=== PATIENT | male | born 1990 | race Caucasian/White ===

== ENCOUNTER 2018-05-13 09:09 | Emergency (ER) | payer SELFPAY ==
[2018-05-13 09:10] VITALS: BP 135/91; PULSE 82; RESP 18; TEMP 36.6; O2SAT 98; BMI 43.2
--- NOTE | 2018-05-13 09:23 | RAD_ITS ---
STUDY: X-RAY - RIGHT FOOT CLINICAL: Male, 27 years old. Pain following injury. TECHNIQUE: 3 view(s) of the foot. COMPARISON: None. FINDINGS: There is a dorsal talar neck ?beak?. Small calcaneal spur at insertion of the Achilles tendon Normal visualized subtalar, talonavicular, calcaneocuboid, tarsal and tarsometatarsal articulations. Normal metatarsi. Normal metatarsophalangeal joint of the great toe. Normal tibial and fibular sesamoid bones. Normal interphalangeal joint of the great toe. Normal phalanges of the great toe. Normal second through fifth metatarsophalangeal joints. Normal interphalangeal joints and phalanges of the lesser toes. The soft tissue structures are unremarkable. RAD/Foot min 3 Views IMPRESSION: No acute abnormality is seen. Electronically Signed: Griffin Zafar MD at 9:57 EDT Tel [phone], Service support ,
[2018-05-13] MEDS: Naproxen 500 MG Tablet PO (09:25)
--- NOTE | 2018-05-13 09:28 | ED.DCSUM_ITS ---
- ER Visit Summary Date of Service: 05/13/18 Chief Complaint: Right foot pain History of Present Illness: The patient is a 27 M with no primary care physician. He reports he has right foot pain that began 2 days ago. It is a sharp pain Zeta 10 at worst and 410 currently. Is worsened by walking. It is relieved by rest. He is taken Tylenol without further relief. He denies any paresthesias. No recent trauma. No fall, MVA, or change in activity. Patient reports that 2 years ago he dropped a hands on his right foot and has had intermittent pain since that time. Physical Examination: Vitals: Stable. Afebrile. General: Well-nourished and well-developed. Head: Normocephalic atraumatic. Neck: Supple, no lymphadenopathy. No JVD. Nontender. Cardiovascular: Regular rate and rhythm. No murmurs. Respiratory: No respiratory distress. Clear to auscultation bilaterally. Abdominal: Soft, nontender, nondistended, normal bowel sounds. No guarding, rebound, or peritoneal signs. Back: Nontender. Extremities: No tenderness palpation over the medial or lateral malleoli. Is a 2+ dorsalis pedis pulse. He has mild tenderness palpation is diffuse over both the medial lateral sides of his hindfoot. There is no tenderness palpation over the mid or forefoot. He is neurovascular intact distal to this. No erythema, contusion, or soft tissue swelling.. Skin: Normal color, no rash. Neurologic: Alert and oriented ?3. Cranial nerves II through XII are intact. Normal strength and sensation. Psych: Normal affect. Test Results: Right foot x-ray is negative. Emergency Department Course and Treatment: Patient was treated with naproxen. He is resting comfortably. Treatment Plan: Patient refused crutches. He will be discharged on naproxen and instructed to follow-up Dr. Thomas in 1 week if not improving. Return to the emergency department for any worsening symptoms. Disposition: To home in improved and stable condition. Impression: 1. Right foot pain. This note was generated with Whitevector dictation software. It may contain incorrect words, spelling, and punctuation that were not noted in review of the chart prior to signing ED Disposition - Plan for ED Patient: Chief Complaint: Lower Extremity Injury Instructions: ED Sprain Foot Prescriptions: Naproxen [Naprosyn] 500 mg PO BID #14 tablet Referrals: Nate Thomas DPM [STAFF PHYSICIAN] - 1 Week if not improving
== END 2018-05-13 10:30 | disposition home or self-care (01) ==
PROVIDERS: Emergency Provider Emergency Medicine
DX: M79.671 Pain in right foot (principal); R05 Cough
CPT/HCPCS: 73630; 99283

== ENCOUNTER 2018-06-10 12:27 | Emergency (ER) | payer SELFPAY ==
[2018-06-10 12:28] VITALS: BP 127/77; PULSE 99; RESP 18; TEMP 36.7; O2SAT 99; BMI 43.4
--- NOTE | 2018-06-10 13:31 | ED.DCSUM_ITS ---
- ER Visit Summary Date of Service: 06/10/18 Chief Complaint: Redness and swelling to right great toe History of Present Illness: The patient is a 28 M who presents with redness and swelling to his right great toe for the past 2 weeks. Patient states he has a history of prior ingrown toenails. Patient states he was attempting to remove part of the nail himself. Patient has been using Epson salt soaks. Patient states there is some drainage coming from the nail margin. Patient denies any fevers or chills. Patient denies any paresthesias or weakness. Physical Examination: Vital signs are stable. Patient is afebrile. Patient is in no acute distress. Skin is warm and dry. There is some erythema and warmth over the lateral nail margin of the right great toe. There is no active drainage. There is no fluctuance noted. There is full range of motion of the IP and MP joint of the right great toe. Sensation was intact to light touch in all digits. Capillary refill is less than 2 seconds in all digits. The remaining physical exam is within normal limits. Emergency Department Course and Treatment: Patient was instructed to continue using Epsom salt soaks. Patient was given a prescription for Keflex. Patient was instructed to follow-up with his primary care physician in 7-10 days. Patient understood and was agreeable with the plan. All questions were answered. Disposition: Discharged home Impression: Paronychia right great toe This note was generated with [employer] dictation software. It may contain incorrect words, spelling, and punctuation that were not noted in review of the chart prior to signing ED Disposition - Plan for ED Patient: Disposition: Home or Assisted Living Chief Complaint: Lower Extremity Injury Diagnosis: Paronychia of great toe, right Instructions: ED Fingernail Infec Prescriptions: Cephalexin [Keflex] 500 mg PO Q6 #40 cap Referrals: Care Physician,No Primary [Primary Care Provider] -
== END 2018-06-10 14:25 | disposition home or self-care (01) ==
PROVIDERS: Emergency Provider Emergency Medicine
DX: L03.031 Cellulitis of right toe (principal)
CPT/HCPCS: 99282

== ENCOUNTER 2019-07-16 20:22 | Emergency (ER) | payer SELFPAY ==
[2019-07-16 20:22] VITALS: BP 145/82; PULSE 89; RESP 16; TEMP 36.8; O2SAT 97; BMI 42.8
--- NOTE | 2019-07-16 20:37 | ED.DCSUM_ITS ---
- ER Visit Summary Date of Service: 07/16/19 Chief Complaint: [Right foot pain] History of Present Illness: The patient is a 29 M [resents to the emergency department complaint of pain in his right foot that started 2 days ago. Patient denies any trauma. Patient is noticed some redness and swelling to the first MTP joint of the right foot. Patient has no history of gout. He denies any fevers or trauma.] Physical Examination: [Right foot-patient has tenderness over the first met atarsal with soft tissue swelling noted and erythema. Patient has pain with range of motion at this area. Neurovascular intact distally. No evidence of cellulitis.] Test Results: [None indicated] Emergency Department Course and Treatment: [He was started on prednisone 40 mg p.o.] Treatment Plan: [Will be treated with prednisone and [place] for pain. 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 It may contain incorrect words, spelling, and punctuation that were not noted in review of the chart prior to signing ED Disposition - Plan for ED Patient: Referrals: Care Physician,No Primary [Primary Care Provider] -
--- NOTE | 2019-07-16 20:38 | ED.DEP ---
ED Disposition - Plan for ED Patient: Instructions: Gouty Arthritis Prescriptions: Prednisone [Deltasone] 20 mg PO BID #10 tab Prescription Printed Hydrocodone Bitart/Apap 5-325 [[place] 5MG-325MG] 1 tab PO Q4H PRN PRN 2 Days #10 tab PRN Reason: Pain Prescription Printed Referrals: Care Physician,No Primary [Primary Care Provider] - Lynn Huynh DPM [STAFF PHYSICIAN] - 3-5 Days
[2019-07-16] MEDS: predniSONE 20 MG Tablet 40 MG PO (20:52)
== END 2019-07-16 21:20 | disposition home or self-care (01) ==
LOC: ED 20:55
PROVIDERS: Emergency Provider Emergency Medicine
DX: M10.9 Gout, unspecified (principal)
CPT/HCPCS: 99282

== ENCOUNTER 2019-10-23 16:49 | Emergency (ER) | payer SELFPAY ==
[2019-10-23 16:50] VITALS: BP 167/97; PULSE 103; RESP 18; TEMP 36.1; O2SAT 98; BMI 42.5
--- NOTE | 2019-10-23 17:27 | ED.DCSUM_ITS ---
- ER Visit Summary Date of Service: 10/23/19 Chief Complaint: Left forearm pain History of Present Illness: The patient is a 29 M who presents with left forearm pain that began today. Patient states she was sitting watching TV when the pain began. Patient denies any trauma or injury. Patient states the pain worse when he grasps something. Patient states the pain is localized to the ulnar aspect of the proximal forearm. Patient denies any paresthesias or weakness. Patient states the pain is sharp. Patient states nothing makes it better or worse. Patient states he has not tried anything at home. Physical Examination: Vital signs are stable. Patient is afebrile. Patient is in no acute distress. Musculoskeletal exam reveals tenderness over the ulnar aspect of the proximal left forearm. There is no edema or ecchymosis. There is no bony crepitance or step-off noted. There is full range of motion of the left elbow and left wrist. There are no foreign bodies noted. Sensation was intact to light touch in the radial, median, and ulnar areas. Strength is 5/5 in the radial, median, and ulnar areas. Radial pulses are equal bilaterally. Capillary refill was less than 2 seconds in all digits. Emergency Department Course and Treatment: Patient was advised that this is most likely muscular strain in his forearm. Patient was instructed to use ice to the area. Patient was given a prescription for Naprosyn. Patient was instructed to follow-up with his primary care physician in 5 to 7 days. Patient understood and was agreeable with the plan. All questions were answered. Disposition: Discharge home Impression: Left forearm strain This note was generated with [employer] dictation software. It may contain incorrect words, spelling, and punctuation that were not noted in review of the chart prior to signing ED Disposition - Plan for ED Patient: Disposition: Home or Assisted Living Diagnosis: Muscle strain of left forearm Instructions: MUSCLE STRAIN, Extremity Prescriptions: Naproxen [Naprosyn] 500 mg PO BID PRN #20 tab Prescription Printed Referrals: Care Physician,No Primary [Primary Care Provider] - Musa Solis III, MD [STAFF PHYSICIAN] - 5-7 Days
== END 2019-10-23 17:53 | disposition home or self-care (01) ==
PROVIDERS: Emergency Provider Emergency Medicine
DX: S56.912A Strain of unspecified muscles, fascia and tendons at forearm level, left arm, initial encounter (principal); X58.XXXA Exposure to other specified factors, initial encounter; Y93.9 Activity, unspecified; Y92.89 Other specified places as the place of occurrence of the external cause; Y99.9 Unspecified external cause status; F17.210 Nicotine dependence, cigarettes, uncomplicated
CPT/HCPCS: 99282

== ENCOUNTER 2019-11-20 18:57 | Emergency (ER) | payer SELFPAY ==
[2019-11-20 18:57] VITALS: BP 163/92; PULSE 104; RESP 18; TEMP 36.7; O2SAT 97; BMI 45.3
--- NOTE | 2019-11-20 19:09 | ED.DCSUM_ITS ---
- ER Visit Summary Date of Service: 11/20/19 Chief Complaint: [Left foot pain] History of Present Illness: The patient is a 29 M [presents to the emergency department with complaint of pain in his left foot that started 2 days ago. Patient denies any trauma. Patient states that several months ago he had pain exact same area. Patient denies any fevers. He has no medical history.] Physical Examination: [Foot-patient has tenderness over the first MTP joint with some pain erythema noted. Neurovascular intact distally. No evidence of trauma. No cellulitis. No lymphangitic streaking.] Test Results: [Indicated] Emergency Department Course and Treatment: [Patient was started on prednisone 40 mg p.o. Given crutches.] Treatment Plan: Patient will be started on prednisone and given a prescription for [place] for pain. Patient will be referred to primary care physician allergist/pediatric pulmonologist for no doc as well as podiatry] Disposition: [Discharged home in stable condition.] Impression: [Gouty arthropathy left foot] This note was generated with Qu[employer] dictation software. It may contain incorrect words, spelling, and punctuation that were not noted in review of the chart prior to signing ED Disposition - Plan for ED Patient: Referrals: Care Physician,No Primary [Primary Care Provider] -
--- NOTE | 2019-11-20 19:10 | DCINST.ED_ITS ---
ED Disposition - Plan for ED Patient: Instructions: Gout Diet, Treating Gout Attacks Prescriptions: Prednisone [Deltasone] 20 mg PO BID #10 tab Prescription Printed Hydrocodone Bitart/Apap 5-325 [[place] 5MG-325MG] 1 tab PO Q4H PRN PRN 2 Days #10 tab PRN Reason: Pain Prescription Printed Referrals: Care Physician,No Primary [Primary Care Provider] - Masoud Neumann MD [STAFF PHYSICIAN] - 5-7 Days Nate Thomas DPM [STAFF PHYSICIAN] - 5-7 Days
[2019-11-20] MEDS: predniSONE 20 MG Tablet 40 MG PO (19:24)
[2019-11-20 19:25] VITALS: RESP 16
== END 2019-11-20 19:32 | disposition home or self-care (01) ==
LOC: ED 19:27
PROVIDERS: Emergency Provider Emergency Medicine
DX: M10.9 Gout, unspecified (principal)
CPT/HCPCS: 99283

== ENCOUNTER 2020-07-28 14:58 | Emergency (ER) | payer SELFPAY ==
[2020-07-28 15:00] VITALS: BP 149/64; PULSE 95; RESP 18; TEMP 36.3; O2SAT 98; BMI 44.7
[2020-07-28 16:30] LABS: Absolute Lymphocyte Count 0.55 X10^3/uL (0.83-4.51); Basophil# 0.01 X10^3/uL; Basophil% 0.2 % (0-1); Eosinophil# 0.06 X10^3/uL; Eosinophils% 1.2 % (0-5); Hematocrit 48.1 % (40-54); Hemoglobin 16.7 g/dL (13.0-16.5); Lymphocyte # 0.55 X10^3/ul (4.0); Lymphocyte % 11.2 % (19-41); Mean Corp Hgb Conc 34.7 g/dL (32-36); Mean Corpuscular Hgb 32.7 pg (27.0-32.0); Mean Corpuscular Volume 94.1 fL (80-94); Mean Platelet Vol. 9.8 fl (6.2-12.0); Monocyte# 0.32 X10^3/uL; Monocyte% 6.5 % (0-10); NRBC Flagged by Analyzer 0 % (0-5); Neutrophil # 3.96 X10^3/uL (2.7-7.7); Neutrophil % 80.5 % (47-70); POSITIVE COUNT YES; POSITIVE DIFFERENTIAL YES; Platelet Count 121 K/mm3 (150-450); RBC Distribution Width CV 12.6 % (11.6-14.6); RBC Distribution Width SD 43.2 fl (35.1-43.9); Red Blood Count 5.11 M/mm3 (4.6-6.2); White Blood Count 4.9 K/mm3 (4.4-11.0)
--- NOTE | 2020-07-28 16:57 | ED.VISSUMM ---
- ER Visit Summary Date of Service: 07/28/20 Chief Complaint: Abdominal pain History of Present Illness: The patient is a 30 M who presents with abdominal pain that began yesterday. Patient states it is gradually gotten worse. Patient states pain is over the epigastric area. Patient describes his pain is dull. Patient states it is worse with deep breathing. Patient denies any relation with food. Patient denies any nausea or vomiting. Patient denies any diarrhea, melena, or hematochezia. Patient denies any dysuria or hematuria. Patient denies any fevers but admits to subjective chills. Patient states he checked his temperature at home and it was normal even when he was feeling chilled. Physical Examination: Vital signs are stable. Patient is afebrile. Patient is in no acute distress. Oral mucosa is pink and moist. Neck is supple. Trachea is midline. There is no JVD noted. Heart was regular rate and rhythm. Lungs are clear and equal bilaterally. Abdomen is soft. Bowel sounds are normal. There is epigastric tenderness. There is no rebound or guarding noted. Cranial nerves II through XII are intact. There are no focal motor or sensory deficits noted. Extremities are intact. There is no calf tenderness or edema. Test Results: CBC was within normal limits. Comprehensive metabolic profile and lipase were obtained and were all within normal limits. Emergency Department Course and Treatment: Patient was given a GI cocktail here. Patient was advised of his findings. Patient was advised that this could be gastritis, GERD, or musculoskeletal pain. Patient was instructed to follow-up with his primary care physician in 5 to 7 days. Patient understood and was agreeable with the plan. All questions were answered. Disposition: Discharge home Impression: Epigastric abdominal pain This note was generated with N[employer] dictation software. It may contain incorrect words, spelling, and punctuation that were not noted in review of the chart prior to signing ED Disposition - Plan for ED Patient: Disposition: Home or Assisted Living Diagnosis: Epigastric abdominal pain of unknown etiology Instructions: ED Unknown Causes of Abdominal Pain Male Prescriptions: Omeprazole [Prilosec] 20 mg PO DAILY #30 cap Transmission Status: Pending to [id number] Referrals: Tolu Lawson MD [STAFF PHYSICIAN] - 5-7 Days
[2020-07-28 17:05] LABS: ALB/GLOB Ratio 0.6 RATIO (0.9-2.4); AST(SGOT) 42 U/L (15-37); Alanine Aminotransfer ALT/SGPT 48 U/L (16-61); Albumin, Serum 3.2 g/dL (3.2-5.0); Alkaline Phosphatase 70 U/L (45-117); Anion Gap 3 (5-15); BUN 12 mg/dL (7-18); BUN/Creat Ratio 12.6 RATIO (10-20); Calcium,Total 8.7 mg/dL (8.5-10.1); Chloride 105 mmol/L (98-107); Creatinine, Serum 0.96 mg/dL (0.70-1.30); EST Glomerular Filtration Rate 98 mL/min (>60); Est Glom Filt Rate - Afr Amer 118 mL/min (>60); Estimated Creatinine Clearance 111.49 ml/min; Globulin 5.2 g/dL (2.2-4.2); Glucose 93 mg/dL (74-106); Lipase 185 U/L (73-393); Potassium 4.3 mmol/L (3.5-5.1); Protein, Total 8.4 g/dL (6.4-8.2); Sodium Level 138 mmol/L (136-145)
[2020-07-28] MEDS: Mag Hydrox/Al Hydrox/Simeth 30 ML UDC PO (17:26)
== END 2020-07-28 17:29 | disposition home or self-care (01) ==
PROVIDERS: Emergency Provider Emergency Medicine
DX: R10.13 Epigastric pain (principal)
CPT/HCPCS: 80053; 83690; 85025; 99284; A4216

== ENCOUNTER 2020-09-27 15:44 | Emergency (ER) | payer SELFPAY ==
[2020-09-27 15:45] VITALS: BP 152/84; PULSE 99; RESP 18; TEMP 37; O2SAT 99; BMI 45.1
--- NOTE | 2020-09-27 15:53 | ED.VIS.GEN ---
History of Present Illness Chief Complaint: Complaint Informant: Patient Narrative: Patient presents the emergency department with the chief complaint of dysuria of about 1 day duration. Symptoms began yesterday immediately after intercourse with his monogamous significant other. He states that there were no lobes or lotions. He states that there was some urine and wonders if he got urine into his penis.Patient denies any fevers. He denies drainage from the penis. He denies any swelling or rashes. He states that he is not a diabetic. He states that when he urinates he gets a burning sensation along the penile shaft. - Past Medical History (1) Eczema Status: Chronic Past Medical History - Allergies and Home Meds Allergies/Adverse Reactions: Allergies [place] Allergy (Uncoded 09/27/20 15:44) Rash Primary Care Physician: Care Physician,No Primary [Primary Care Provider] - Prior records reviewed: Yes Surgical History: noncontributory Smoking Status: Former smoker Review of Systems General: Denies: Chills, Fever, Sweats Eyes: Denies: Visual changes - bilaterally, Diplopia ENT: Denies: Rhinorrhea, Sore throat Cardiovascular: Denies: Chest pain, Palpitations Respiratory: Denies: Dyspnea, Cough, Dyspnea on exertion Gastrointestinal: Denies: Abdominal pain, Nausea, Vomiting, Diarrhea, Melena, Hematochezia Genitourinary: Reports: Dysuria. Denies: Hematuria, Frequency Musculoskeletal: Denies: Back pain, Extremity Pain Skin: Denies: Rash, Wounds Neurological: Denies: Headache, Weakness, Numbness Physical Exam Vital Signs/Narrative: Vital Signs Temp Pulse Resp BP Pulse Ox 09/27/20 15:45 98.6 F 99 18 152/84 H 99 Inital Vital Signs reviewed: Yes General: Well nourished, Well developed, Obese, No Acute Distress Head: Normocephalic, Atraumatic Eyes: Perrl, EOMI ENT: Moist mucous membranes, No rhinorrhea Neck: Supple, Nontender Cardiovascular: Regular rate, Regular rhythm, No murmurs Respiratory: No distress, CTA bilaterally, Chest nontender Abdomen: Soft, Nontender, Nondistended, Normal bowel sounds Back: Nontender, Normal Inspection Extremities: Nontender, No edema Skin: Normal color, No rash Neurological: Alert, Oriented x3, Cranial nerves II-XII grossly intact, Normal Strength, Normal Sensation Psychological: Normal affect, Normal Mood Diagnostic/Tx/Re-eval Laboratory Last Values Urine Color Yellow (Yellow) 09/27/20 15:58 Urine Clarity Sl. Cloudy (Clear) 09/27/20 15:58 Urine pH 6.0 (5.0 - 8.0) 09/27/20 15:58 Ur Specific [place] 1.030 (1.002-1.030) 09/27/20 15:58 Urine Protein 30 mg/dl (Negative) H 09/27/20 15:58 Urine Glucose (UA) Normal mg/dl (Normal) 09/27/20 15:58 Urine Ketones Negative mg/dl (Negative) 09/27/20 15:58 Urine Occult Blood Negative /ul (Negative) 09/27/20 15:58 Urine Nitrite Negative (Negative) 09/27/20 15:58 Urine Bilirubin Negative mg/dL (Negative) 09/27/20 15:58 Urine Urobilinogen 1 mg/dl (Normal) H 09/27/20 15:58 Ur Leukocyte Esterase 100 /ul (Negative) H 09/27/20 15:58 Urine RBC 0 SEEN /hpf (0-5) 09/27/20 15:58 Urine WBC 10-25 SEEN /hpf (0-5) 09/27/20 15:58 Ur Squamous Epith Cells 0-5 SEEN /hpf (0-5) 09/27/20 15:58 Urine Bacteria 0 SEEN /hpf (None Seen) 09/27/20 15:58 Urine Mucus 0 SEEN /hpf (<or=2+) 09/27/20 15:58 - Medical Decision Making Urinalysis demonstrates 10-25 white blood cells and 0 bacteria negative nitrates. I think from his description of the events is most likely a chemical urethritis. Go ahead and place him on Keflex given the 10-25 white cells. We will also write for some Pyridium. Avoidance of sexual contact until symptoms have resolved. If they are not resolving he should follow-up with urology. ED Disposition - Plan for ED Patient: Disposition: Home or Assisted Living Diagnosis: Urethritis Instructions: ED CHEMICAL URETHRITIS Child Prescriptions: Cephalexin [Keflex] 500 mg PO Q12 #10 cap Prescription Printed Phenazopyridine HCl [Pyridium] 200 mg PO TID #9 tab Prescription Printed Referrals: Wil Foy MD [STAFF PHYSICIAN] - 1 Week if not improving
[2020-09-27 16:08] LABS: Bacteria 0 SEEN /hpf (None Seen); Mucous, Urine 0 SEEN /hpf (<or=2+); Red Blood Cells-Urine 0 SEEN /hpf (0-5)
[2020-09-27 16:19] LABS: Color, Urine Yellow (Yellow); Glucose, Dipstick Normal (Normal); Ketone-Dipstick Negative (Negative); Leukocyte Esterase-Dipstick 100 /ul (Negative); Nitrite-Dipstick Negative (Negative); Occult Blood-Urine Negative /ul (Negative); Protein-Dipstick 30 mg/dl (Negative); Urine Bilirubin Dipstick Negative (Negative); Urine Clarity Sl. Cloudy (Clear); Urine Urobilinogen 1 mg/dl (Normal)
[2020-09-27 16:27] LABS: Squamous Epithelial Cells - UA 0-5 SEEN /hpf (0-5); White Blood Cells 10-25 SEEN /hpf (0-5)
== END 2020-09-27 17:18 | disposition home or self-care (01) ==
PROVIDERS: Emergency Provider Emergency Medicine
DX: N34.2 Other urethritis (principal); Z87.891 Personal history of nicotine dependence; J30.1 Allergic rhinitis due to pollen
CPT/HCPCS: 81001; 99282

== ENCOUNTER 2021-04-17 11:14 | Emergency (ER) | payer SELFPAY ==
[2021-04-17 11:14] VITALS: BP 155/83; PULSE 82; RESP 16; TEMP 36.8; O2SAT 96; BMI 44.1
--- NOTE | 2021-04-17 11:25 | ED.VIS.LOWEX ---
HPI History of Present Illness Chief Complaint: Lower Extremity Injury Informant: patient Narrative Narrative: Patient has right foot and ankle pain. He states for the past couple of days he has been having pain. He states he had an injury in 2011 and ever since then he has intermittent pain. He denies any new injuries to the foot or ankle. It hurts worse with walking. He denies any numbness or tingling. He tried Tylenol without any relief. PFSH PFSH Home Medications cephalexin 500 mg PO Q12 #10 cap 09/27/20 [Rx Last Taken Unknown] phenazopyridine 200 mg PO TID #9 tab 09/27/20 [Rx Last Taken Unknown] naproxen 500 mg PO BID PRN #20 tab 04/17/21 [Rx Last Taken Unknown] Allergy/AdvReac Type Severity Reaction Status Date / Time [place] Allergy Rash Uncoded 04/17/21 11:16 Social History Smoking Status: Former smoker ROS ROS ED Constitutional Constitutional ED: Denies chills or fever(s) Eyes Eyes: Denies blurry vision, change in vision or diplopia ENT ENT ED: Denies ear pain, rhinorrhea or sore throat Cardiovascular Cardiovascular: Denies chest pain or palpitations Respiratory/Chest Respiratory/Chest: Denies cough, dyspnea or sputum Gastrointestinal Gastrointestinal: Denies abdominal pain, diarrhea, nausea or vomiting Genitourinary Genitourinary ED: Denies dysuria, hematuria or urinary frequency Musculoskeletal Musculoskeletal: Reports other Details: Right foot and ankle pain Integumentary Denies change in pigmentation or rash Neurologic Neurologic: Denies headache(s), numbness or weakness Psychiatric Psychiatric: Denies anxiety or depression Endocrine Endocrinology: Denies polydipsia or polyuria EXAM Physical Exam Const Vital Signs: 04/17/21 11:14 Temperature 98.2 F Temperature Source Temporal Pulse Rate 82 Respiratory Rate 16 Blood Pressure 155/83 H Blood Pressure Mean 107 Pulse Ox 96 Oxygen Delivery Method Room Air Positive well nourished and well developed General Appearance ED: well developed HEENT normocephalic and atraumatic Eyes PERRL Extremity Extremity Narrative: T. There is no tenderness to palpation. Capillary refills less than 2 seconds.Right foot and ankle have normal appearance. There is no swelling. He has a 2+ pulse Neuro oriented x3 and CN's II-XII intact bilaterally Sensorium / Orientation: alert Psych mental status grossly normal Skin Rashes: no rashes MDM MDM MDM Narrative Medical decision making narrative: The patient is not complaining of any pain while sitting in the bed. He has no tenderness to palpation. At this point I do not feel he needs any repeat x-rays. I will give him naproxen for pain control. He will be given orthopedic follow-up. Discharge Plan Triage Chief Complaint: Lower Extremity Injury ED Provider: Shant Mason Dx/Rx/DC Orders Clinical Impression: Acute pain of right foot Instructions: ED Pain, Acute, Uncertain Cause Prescriptions: New naproxen 500 MG tablet 500 mg PO BID PRN Qty: 20 RF: 0 No Action phenazopyridine 200 MG tablet 200 mg PO TID Qty: 9 RF: 0 cephalexin 500 MG capsule 500 mg PO Q12 Qty: 10 RF: 0 Primary Care Provider: Care Physician,No Primary Referrals: Catrachito Jimenez MD [STAFF PHYSICIAN] - Care Physician,No Primary [Primary Care Provider] - Disposition Disposition: Home, self care
== END 2021-04-17 11:49 | disposition home or self-care (01) ==
LOC: ED 11:34
PROVIDERS: Emergency Provider Emergency Medicine
DX: M79.671 Pain in right foot (principal); Z87.891 Personal history of nicotine dependence
CPT/HCPCS: 99282

== ENCOUNTER 2022-01-16 06:22 | Emergency (ER) | payer SELFPAY ==
[2022-01-16 06:23] VITALS: BP 159/88; PULSE 106; RESP 17; TEMP 36.2; O2SAT 98; BMI 45.6
--- NOTE | 2022-01-16 06:38 | RAD_ITS ---
STUDY: X-RAY - LEFT ANKLE REASON FOR EXAM: Male, 31 years old. pain TECHNIQUE: 3 view(s) of the ankle. COMPARISON: None. FINDINGS: No acute fracture or dislocation. There is calcaneal spurring present. The soft tissue structures are unremarkable. RAD/Ankle min 3 Views IMPRESSION: Negative x-ray examination of the ankle. Electronically Signed: Alberto Bradford MD at 7:08 EST ,
[2022-01-16] MEDS: HYDROcodone Bitartrate/Apap 5/325 Tablet PO (06:43)
--- NOTE | 2022-01-16 07:05 | EX.ED.DYSGE1 ---
HPI History of Present Illness Chief Complaint: Lower Extremity Injury Narrative Narrative: Patient is a 31-year-old male with past medical history of ankle problems. He states he was helping to push his brother out of snow 3 to 5 days ago. He states that he did not have any pain while pushing but the next day woke up and noticed some pain and swelling in his left lateral ankle. He states there has been no further trauma or excessive activity but he has noticed that the pain has been persistent and not improving with rest and [id number] medications and therefore comes to the hospital for evaluation. PFSH PFSH Home Medications hydrocodone-acetaminophen 1 tab PO Q6H PRN 3 Days #12 tab 01/16/22 [Rx Last Taken Unknown] Allergy/AdvReac Type Severity Reaction Status Date / Time [place] Allergy Rash Uncoded 04/17/21 11:16 Social History Smoking Status: Former smoker ROS ROS ED Constitutional Constitutional ED: Denies chills or fever(s) ENT ENT ED: Denies sore throat Cardiovascular Cardiovascular: Denies chest pain Respiratory/Chest Respiratory/Chest: Denies cough or dyspnea Gastrointestinal Gastrointestinal: Denies abdominal pain, diarrhea, nausea or vomiting Genitourinary Genitourinary ED: Denies dysuria Musculoskeletal Musculoskeletal: Reports arthralgias and other Details: Positive left ankle pain ; Denies myalgias Integumentary Denies rash Neurologic Neurologic: Denies headache(s) Hematologic/Lymphatic Hematologic/Lymphatic: Denies easy bleeding or easy bruising EXAM Physical Exam Const Vital Signs: 01/16/22 06:23 Temperature 97.2 F L Temperature Source Temporal Pulse Rate 106 H Respiratory Rate 17 Blood Pressure 159/88 H Blood Pressure Mean 111 Pulse Ox 98 Oxygen Delivery Method Room Air Positive well nourished, well developed and obese General Appearance ED: well developed Nutritional Appearance: obese Eyes PERRL and EOMs intact bilaterally Neck supple Resp normal respiratory effort and clear to auscultation bilaterally Cardio regular rate and regular rhythm Extremity Extremity Narrative: Left lower extremity is neurovascularly intact. Patient does have soft tissue swelling along the left lateral malleolus. Active range of motion is decreased secondary to pain. However Achilles tendon and ankle ligaments are stable. There is pain on palpation over top the joint space just below the lateral malleolus. There is no asymmetric erythema warmth or lymphangitic streaking associated with the asymmetric edema. Negative Homans' sign bilaterally Neuro oriented x3 and CN's II-XII intact bilaterally Sensorium / Orientation: alert Psych mental status grossly normal Skin no rashes or lesions noted Skin Narrative: Soft tissue swelling to the left lateral malleolus/ankle as documented above MDM MDM MDM Narrative Medical decision making narrative: Patient presented to the ER with report of left ankle pain and no apparent trauma. He did state that he was doing excessive activity the day prior to the pain beginning. On exam he does have asymmetric soft tissue swelling around the joint space but Achilles tendon ankle ligaments are stable. He also does not have overlying erythema warmth or lymphangitic streaking to suggest cellulitic infection or gout. As the soft tissue swelling is localized to the ankle and he has a negative Homans' sign I have low concern for DVT. An x-ray was obtained which reveals no acute fracture dislocation or foreign body. Therefore this time I feel patient has an ankle sprain of his fibulotalar ligament and he can be treated symptomatically with walking boot and pain medication and discharged Radiography Diagnostic Testing: X-ray of the left ankle reveals no acute fracture or dislocation Discharge Plan Triage Chief Complaint: Lower Extremity Injury ED Provider: Roland Bruce Dx/Rx/DC Orders Clinical Impression: Left ankle sprain Instructions: ED Ankle Sprain (Adult) Prescriptions: New hydrocodone-acetaminophen 5-325 mg tablet 1 tab PO Q6H PRN (Reason: pain) 3 Days Qty: 12 RF: 0 Primary Care Provider: Care Physician,No Primary Referrals: Tolu Lawson MD [STAFF PHYSICIAN] - 1 Week if not improving Care Physician,No Primary [Primary Care Provider] - Disposition Disposition: Home, Self Care
== END 2022-01-16 07:27 | disposition home or self-care (01) ==
PROVIDERS: Emergency Provider Emergency Medicine; Visit Provider Emergency Medicine
DX: S93.402A Sprain of unspecified ligament of left ankle, initial encounter (principal); Z87.891 Personal history of nicotine dependence
CPT/HCPCS: 73610; 99282

== ENCOUNTER 2024-03-22 21:23 | Emergency (ER) | payer SELFPAY ==
[2024-03-22 21:25] VITALS: BP 157/81; PULSE 122; RESP 16; TEMP 35.8; O2SAT 95
--- NOTE | 2024-03-22 21:34 | ED.VIS.LOWEX ---
HPI History of Present Illness Chief Complaint: Lower Extremity Injury Detail of Chief Complaint: Patient complains of pain above the right patella since bowling last evenin Informant: patient and parent Occured/Mechanism Comment: Documented HPI narrative Onset/Context/Timing Context: Sudden Onset Timing: Continuous Quality of Pain: Dull and Throbbing Location: Superior of the right patella Current Severity: Mild Maximum Severity: Moderate Worsened by: Movement, palpation and walking Relieved by: Nothing Associated Symptoms Associated Symptoms: Negative for Parasthesia, Weakness or Loss of Funtion Narrative Narrative: Patient is a 33-year-old male. He presents with pain above the right patella. There is no history of trauma. This occurred after bowling. He denies paresthesia, anesthesia motors. He denies history of diabetes, renal disease, hypertension or peptic ulcer disease. He has taken Tylenol with no benefit. He has not applied ice or heat to the area. He denies prior symptoms. Prior similar symptoms: No Recent Illness/Hospitalization: No PFSH PFSH Home Medications NK 03/22/24 [History Last Taken Unknown] Allergy/AdvReac Type Severity Reaction Status Date / Time Environmental Allergies: Allergy Rash Verified 03/22/24 21:27 Uncoded [pine] Social History (Updated 03/22/24 @ 21:[address] Angelo Wharton MD) household members: family Smoking Status: Former smoker ROS ROS ED Constitutional Constitutional ED: Denies chills, fever(s) or subjective Gastrointestinal Gastrointestinal: Denies nausea or vomiting Musculoskeletal Musculoskeletal: Reports other Details: Per HPI narrative. There is no history of gout or pseudogout ; Denies arthralgias or myalgias Integumentary Denies abscess, Abrasions or rash Neurologic Neurologic: Denies paresthesias or weakness Hematologic/Lymphatic Hematologic/Lymphatic: Denies easy bleeding or easy bruising EXAM Physical Exam Const Vital Signs: 03/22/24 21:25 Temperature 96.5 F L Temperature Source Temporal Pulse Rate 122 H Respiratory Rate 16 Blood Pressure 157/81 H Blood Pressure Mean 106 Pulse Ox 95 Oxygen Delivery Method Room Air Positive well nourished, well developed and obese Constitutional Narrative: Patient observed walking from triage to the examination room. He has a slight limp. General Appearance ED: well developed and NAD Nutritional Appearance: obese HEENT Reports moist mucous membranes normocephalic and atraumatic Eyes PERRL Eyes Narrative: Extract muscle intact. Resp normal respiratory effort Cardio regular rate and regular rhythm Extremity normal to inspection and full ROM Extremity Narrative: Patient able to extend 180 degrees flex to 90 degrees. There is pain outpatient over the quadricep tendon. There is no effusion. Patellas not blottable. There is no laxity varus valgus stress testing. Modified Yuliya's test was negative. Frank's test was negative. There is no pain to palpation popliteal fossa nor is or any fullness or palpable mass. DP PT pulse are palpable and 2+. There is no evidence of injury to the leg, ankle or foot. General Extremety ED: Negative for cyanosis or edema General Extremity: Negative for cyanosis or edema Neuro oriented x3, CN's II-XII intact bilaterally and moves all extremities Sensorium / Orientation: alert Psych mental status grossly normal Skin no wounds Lesions: no lesions Rashes: no rashes MDM MDM MDM Narrative Medical decision making narrative: Patient's history and physical is consistent with quadricep tendinitis. With no effusion there is no concern for crystal induced or pyogenic arthritis. Since patient has good strength there is no concern for quadricep tear. Treatment is NSAIDs and ice. Patient has no contraindication to NSAIDs. Imaging is not required since there is no history of direct trauma. Discharge Plan Triage Chief Complaint: Lower Extremity Injury ED Provider: Angelo Wharton Dx/Rx/DC Orders Clinical Impression: Tendinitis of right quadriceps tendon, Eczema Instructions: ED Tendonitis Prescriptions: No Action NK Stand Alone Forms: ED Work / School Excuse Primary Care Provider: Care Physician,No Primary Referrals: Elda Lo [Non-Staff] - 1 Week if not improving Care Physician,No Primary [Primary Care Provider] - Activity Restrictions/Additional Instructions: 1. Apply ice to area above right knee 6-10 times a day 2. Take 4 ibuprofen tablets every 8 hours or 2 Aleve tablets every 12 hours for the next 5 to 7 days Disposition Disposition: Home, Self Care
[2024-03-22] MEDS: Naproxen 250 MG Tablet 500 MG PO (21:39)
== END 2024-03-22 21:48 | disposition home or self-care (01) ==
PROVIDERS: Emergency Provider Emergency Medicine; Visit Provider Emergency Medicine
DX: M76.51 Patellar tendinitis, right knee (principal); L30.9 Dermatitis, unspecified; Z87.891 Personal history of nicotine dependence
CPT/HCPCS: 99282

== ENCOUNTER 2024-04-21 22:35 | Emergency (ER) | payer SELFPAY ==
[2024-04-21 22:35] VITALS: BP 156/83; PULSE 105; RESP 16; TEMP 36.6; O2SAT 96; BMI 46.7
--- NOTE | 2024-04-22 02:13 | ED.RN ---
pt walking around in his room, pt stated he needs to go to work at 8am and is leaving before being seen. walked out.
== END 2024-04-22 02:15 | disposition left against medical advice (07) ==
DX: M54.9 Dorsalgia, unspecified (principal)
CPT/HCPCS: 99281

== ENCOUNTER 2024-07-29 08:16 | Emergency (ER) | payer SELFPAY ==
[2024-07-29 08:17] VITALS: BP 129/85; PULSE 89; RESP 18; TEMP 36; O2SAT 98; BMI 47.2
--- NOTE | 2024-07-29 08:35 | ED.VIS.LOWEX ---
HPI History of Present Illness HPI Narrative: Patient presents with pain to his right foot that began 2 days ago. Patient states he woke up and noticed pain in the lateral aspect of his right foot. Patient denies any trauma or injury. Patient states pain is worse with any weightbearing. Patient describes the pain as stabbing. Patient states the pain is constant. Patient states nothing makes the pain any better. Patient admits to some tingling over the lateral aspect of his right foot. Patient denies any weakness. Patient denies any neck or back pain. Chief Complaint: Lower Extremity Injury Informant: patient Onset/Context/Timing Onset: Days (3) Context: Sudden Onset Timing: Continuous Quality of Pain: Stabbing Location: Right foot Worsened by: Weightbearing Relieved by: Nothing Associated Symptoms Associated Symptoms: Positive for Parasthesia (Lateral aspect right foot); Negative for Weakness or Loss of Funtion PFSH [facility] Medical History GERD (gastroesophageal reflux disease) Former smoker Migraines Home Medications ?Medication ?Instructions ?Recorded ?Last Taken ?Type naproxen 500 mg tablet 500 mg PO BID PRN #20 tabs 07/29/24 Unknown Rx Allergy/AdvReac Type Severity Reaction Status Date / Time Environmental Allergies: Allergy Rash Verified 04/21/24 22:37 Uncoded (pine) Surgical History no surgical history no surgical history Social History household members: family Smoking Status: Former smoker ROS ROS ED Constitutional Constitutional ED: Denies chills or fever(s) Eyes Eyes: Denies blurry vision or change in vision ENT ENT ED: Denies rhinorrhea or sore throat Cardiovascular Cardiovascular: Denies chest pain or palpitations Respiratory/Chest Respiratory/Chest: Denies cough or dyspnea Gastrointestinal Gastrointestinal: Denies nausea or vomiting Genitourinary Genitourinary ED: Denies dysuria or hematuria Musculoskeletal Musculoskeletal: Denies back pain or neck pain Integumentary Denies abscess or rash Neurologic Neurologic: Denies headache(s) or weakness Allergic/Immunologic Allergic/Immunologic ED: Denies mouth swelling or urticaria EXAM Physical Exam Const Vital Signs: 07/29/24 08:17 Temperature 96.8 F L Temperature Source Temporal Pulse Rate 89 Respiratory Rate 18 Blood Pressure 129/85 H Blood Pressure Mean 99 Pulse Ox 98 Oxygen Delivery Method Room Air Positive well nourished and well developed General Appearance ED: well developed and NAD HEENT Reports moist mucous membranes Neck full ROM Extremity Extremity Narrative: There is tenderness and edema over the lateral aspect of the right foot. There is no obvious deformity noted. There is no ecchymosis noted. Range of motion was slightly limited in all motions of the right foot and toes secondary to pain. Strength is 5/5 bilaterally in the lower extremities. There are no sensory deficits noted. Pedal pulses are equal bilaterally. Neuro oriented x3, CN's II-XII intact bilaterally, moves all extremities and no sensory deficits noted Sensorium / Orientation: alert Motor Exam: strength 5/5 throughout Psych mental status grossly normal MDM MDM MDM Narrative Medical decision making narrative: Differential diagnosis includes sprain, fracture, tendinitis, and contusion. X-rays of the right foot will be obtained to assess for fracture. Radiography Diagnostic Testing: Clinical Impression(s) from Imaging Studies Foot X-Ray 07/29/24 08:46 IMPRESSION: Normal x-ray examination of the foot. Electronically Signed: Griffin Zafar MD at 9:13 EDT , X-rays of the right foot were obtained. There are 3 views. On my independent interpretation, there is an old avulsion fracture off the cuboid bone. There is no acute fracture noted. Radiologist also interpreted the x-rays and agrees. Treatment and Re-Evaluation Narrative: Patient is given a dose of Naprosyn here. Patient was given a walking boot. Patient was instructed to ice and elevate the right foot. Patient was given a prescription for Naprosyn. Patient was given a walking boot. Patient was instructed to follow-up with podiatry and his primary care physician in 5 to 7 days. Patient was also given referral for podiatry. Patient understood and was agreeable with the plan. All questions were answered. Discharge Plan Triage Chief Complaint: Lower Extremity Injury ED Provider: Lc Carey Dx/Rx/DC Orders Clinical Impression: Acute pain of right foot, BMI 45.0-49.9, adult Instructions: ED Foot Sprain, ED RICE Prescriptions: New naproxen 500 mg tablet 500 mg PO BID PRN Qty: 20 0RF Primary Care Provider: Care Physician,No Primary Referrals: Lc Purcell MD [Med Staff - Business Process Specialist] - 5-7 Days Michael Hobbs DPM [Med Staff - Active Staff] - 5-7 Days Care Physician,No Primary [Primary Care Provider] - Print Language: Greenlandic Disposition Disposition: Home, Self Care
--- NOTE | 2024-07-29 08:46 | RAD_ITS ---
STUDY: X-RAY - RIGHT FOOT CLINICAL: Male, 34 years old. Injury/Pain. Numbness. TECHNIQUE: 3 view(s) of the foot. COMPARISON: Comparison is made with prior study dated 01/13/2018. FINDINGS: There is an enthesophyte involving the posterior superior calcaneus at the site of insertion of the Achilles tendon. Normal visualized subtalar, talonavicular, calcaneocuboid, tarsal and tarsometatarsal articulations. Normal metatarsi. Normal metatarsophalangeal joint of the great toe. Normal tibial and fibular sesamoid bones. Normal interphalangeal joint of the great toe. Normal phalanges of the great toe. Normal second through fifth metatarsophalangeal joints. Normal interphalangeal joints and phalanges of the lesser toes. The soft tissue structures are unremarkable. RAD/Foot min 3 Views IMPRESSION: Normal x-ray examination of the foot. Electronically Signed: Griffin Zafar MD at 9:13 EDT ,
[2024-07-29] MEDS: Naproxen 500 MG Tablet PO (08:49)
[2024-07-29 09:31] VITALS: BP 133/90; PULSE 101; RESP 16; TEMP 36.2; O2SAT 95
== END 2024-07-29 09:33 | disposition home or self-care (01) ==
PROVIDERS: Emergency Provider Emergency Medicine; Visit Provider Emergency Medicine
DX: M79.671 Pain in right foot (principal); Z87.891 Personal history of nicotine dependence; K21.9 Gastro-esophageal reflux disease without esophagitis
CPT/HCPCS: 73630; 99283

== ENCOUNTER 2024-12-05 11:20 | Emergency (ER) | payer MEDICAID, SELFPAY ==
[2024-12-05 11:21] VITALS: BP 152/92; PULSE 88; RESP 16; TEMP 36.4; O2SAT 99; BMI 46.2
--- NOTE | 2024-12-05 11:30 | EDS_ITS ---
HPI History of Present Illness Chief Complaint: Ear Problem Informant: patient Onset/Context/Timing Onset: Month(s) (1) Context: Gradual Onset Timing: Continuous Quality: Clogged Location: Bilateral ears, right worse than left Worsened by: Nothing Relieved by: Nothing Narrative Narrative: Patient presents with bilateral ear pain that has been getting worse over the past month. Patient states his ears feel clogged. Patient states his right ear is worse than the left. Patient admits to some decreased hearing. Patient denies any fevers or chills. Patient denies any discharge or drainage. Patient denies any headaches. Patient states he went to urgent care last month and was given decongestants. Patient states these have not helped. Patient denies any sore throat or cough. Patient denies any sinus pressure. [facility] Medical History GERD (gastroesophageal reflux disease) Former smoker Migraines Home Medications ?Medication ?Instructions ?Recorded ?Last Taken ?Type NK 12/05/24 Unknown History Allergy/AdvReac Type Severity Reaction Status Date / Time Environmental Allergies: Allergy Rash Verified 12/05/24 11:23 Uncoded (pine) Social History household members: family Smoking Status: Former smoker ROS ROS ED Constitutional Constitutional ED: Denies chills or fever(s) Eyes Eyes: Denies blurry vision or change in vision ENT ENT ED: Reports ear pain bilateral; Denies rhinorrhea or sore throat Cardiovascular Cardiovascular: Denies chest pain or palpitations Respiratory/Chest Respiratory/Chest: Denies cough or dyspnea Gastrointestinal Gastrointestinal: Denies nausea or vomiting Genitourinary Genitourinary ED: Denies dysuria or hematuria Musculoskeletal Musculoskeletal: Denies back pain or neck pain Integumentary Denies abscess or rash Neurologic Neurologic: Denies headache(s) or weakness Allergic/Immunologic Allergic/Immunologic ED: Denies mouth swelling or urticaria EXAM Physical Exam Const Vital Signs: 12/05/24 11:21 Temperature 97.6 F L Temperature Source Oral Pulse Rate 88 Respiratory Rate 16 Blood Pressure 152/92 H Blood Pressure Mean 112 Pulse Ox 99 Oxygen Delivery Method Room Air Positive well nourished and well developed General Appearance ED: well developed and NAD HEENT Reports moist mucous membranes HEENT Narrative: There is cerumen noted in the external auditory canals bilaterally. There is no pain with manipulation of the external ear. There is no discharge or drainage. Oral mucosa is pink and moist. Oropharynx is clear. Airway is patent. There is no tenderness over the frontal or maxillary sinuses. Neck no lymphadenopathy, supple and no JVD Resp normal respiratory effort and clear to auscultation bilaterally Cardio regular rate and regular rhythm Neuro oriented x3, CN's II-XII intact bilaterally and no sensory deficits noted Sensorium / Orientation: alert Motor Exam: strength 5/5 throughout Psych mental status grossly normal MDM [facility] Treatment and Re-Evaluation :: Debrox solution was applied to the ears bilaterally, the ears were irrigated. There was moderate amount of cerumen removed. Patient felt better. Patient states his hearing improved. Patient was instructed to use epqh-[id number]-pcounge ea rwax removal kits as needed. Patient was instructed to follow-up with his primary care physician in 5 to 7 days. Patient understood and was agreeable with the plan. All questions were answered. Discharge Plan Triage Chief Complaint: Ear Problem ED Provider: Lc Carey Dx/Rx/DC Orders Clinical Impression: Cerumen impaction, Body mass index (BMI) of 40.0 to 49.9 Instructions: ED Cerumen Impaction Treated Prescriptions: No Action NK Primary Care Provider: Care Physician,No Primary Referrals: Kevin Vasquez MD [Med Staff - Active Staff] - 1-2 Weeks Care Physician,No Primary [Primary Care Provider] - Print Language: Hungarian Disposition Disposition: Home, Self Care
[2024-12-05] MEDS: Carbamide Peroxide 15 ML Bottle 5 DRP OTIC (11:41)
== END 2024-12-05 12:37 | disposition home or self-care (01) ==
PROVIDERS: Emergency Provider Emergency Medicine; Visit Provider Emergency Medicine
DX: H61.20 Impacted cerumen, unspecified ear (principal); Z87.891 Personal history of nicotine dependence

== ENCOUNTER 2025-08-23 16:12 | Emergency (ER) | payer MEDICAID, SELFPAY ==
--- OUTSIDE RECORDS SUMMARY | 2024-11-20 14:30 | XMS RPT_ITS ---
Author Name Auto Generated Organization [facility] Care Team Providers Care Manager Orange Name Role Phone KARISSA LOZANO Primary Care Unavailable PROBLEMS No Problem Records Found PROCEDURES No Procedure Records Found RESULTS PROGRESS Observed: 11/20/2024 3:45 PM Status: COMPLETED Source: [facility] HNO ID: [id number] Author: RACHEAL MACIAS PA-C Service: ? Author Type: Physician Health Facilities Surveyor Type: Progress Notes Filed: 11/20/2024 15:46 Note Text: This note was created using Standard Treasuryter. Subjective Henok Medley is a 34 year old male. HPI Presents with a chief complaint of his ears feeling clogged. He has had some nasal congestion over the past 2 or 3 days as well. He tried to clean his ears out yesterday but did not notice any difference. He states he did get some wax out yesterday. No fever or chills. No drainage from his ears. Denies cough. No sore throat. Review of Systems Constitutional: Negative. HENT: Positive for congestion, ear pain, hearing loss and postnasal drip. Negative for sinus pain and sore throat. Eyes: Negative. Respiratory: Negative for cough. Cardiovascular: Negative. Gastrointestinal: Negative. Genitourinary: Negative. Musculoskeletal: Negative. All other systems reviewed and are negative. PAST MEDICAL HISTORY Diagnosis Date Eczema Obesity Tobacco abuse Current Outpatient Medications Medication Sig Dispense Refill fluticasone (FLONASE) 50 mcg/actuation nasal spray Use 2 Sprays in each nostril once daily. Rinse mouth after use. 1 Each 0 cetirizine-pseudoephedrine (ZYRTEC-D) 5-120 mg per tablet Take 1 tablet by mouth two times a day. 14 tablet 0 triamcinolone acetonide (KENALOG) 0.1 % cream Apply 1 application to affected area three times daily. Apply sparingly to area for rash/itching. (Patient not taking: Reported on 09/25/2019) 80 g 0 albuterol HFA (PROAIR HFA) 90 mcg/actuation inhaler Inhale 2 Puffs as instructed every 4 hours as needed. (Patient not taking: Reported on 07/01/2019) 1 Inhaler 0 clobetasol 0.05 % cream Apply sparingly to areas twice daily, on 4 days and off 3 days (Patient not taking: Reported on 10/01/2024) 30 g 1 No current facility-administered medications for this visit. No past surgical history on file. FAMILY HISTORY Problem Relation Age of Onset Coronary Artery Disease Mother in her 30's Diabetes Mother Stroke Paternal Grandmother Social History Tobacco Use Smoking status: Former Types: Cigarettes Smokeless tobacco: Never Tobacco comments: 5 cigarettes daily Objective BP 130/84 Pulse 92 Temp 36.7 ?C (98.1 ?F) (Tympanic) Resp 16 Wt (!) 140.9 kg (310 lb 10.1 oz) SpO2 97% Physical Exam Vitals reviewed. Constitutional: Appearance: Normal appearance. HENT: Head: Normocephalic and atraumatic. Right Ear: Tympanic membrane, ear canal and external ear normal. Left Ear: Tympanic membrane, ear canal and external ear normal. Ears: Comments: Scant cerumen in each canal Nose: Congestion present. Mouth/Throat: Mouth: Mucous membranes are moist. Pharynx: Oropharynx is clear. Cardiovascular: Rate and Rhythm: Normal rate and regular rhythm. Heart sounds: Normal heart sounds. Pulmonary: Effort: Pulmonary effort is normal. Breath sounds: Normal breath sounds. Musculoskeletal: Cervical back: Neck supple. Skin: General: Skin is warm and dry. Findings: No rash. Neurological: Mental Status: He is alert. Assessment and Plan ASSESSMENT/PLAN: 1. Otalgia of both ears - ICD9: 388.70, ICD10: H92.03 Likely eustachian tube dysfunction. Flonase and Zyrtec-D sent. Follow-up with PCP if not improving. Racheal Macias PA-C CNOV Observed: 11/20/2024 1:30 PM Status: COMPLETED Source: [facility] Office Visit (WSTR) HENOK MEDLEY ([id number]) 1990 M Date Time Provider Department 11/20/24 1:30 PM RACHEAL MACIAS WSTR During your visit today, we recorded the following information about you: Temperature Pulse Respiration Blood pressure 98.1 degrees 92/minute 16/minute 130/84 Weight 140.9 kg Racheal Macias PA-C 11/20/2024 3:46 PM Signed This note was created using Convioriter. Subjective Henok Medley is a 34 year old male. HPI Presents with a chief complaint of his ears feeling clogged. He has had some nasal congestion over the past 2 or 3 days as well. He tried to clean his ears out yesterday but did not notice any difference. He states he did get some wax out yesterday. No fever or chills. No drainage from his ears. Denies cough. No sore throat. Review of Systems Constitutional: Negative. HENT: Positive for congestion, ear pain, hearing loss and postnasal drip. Negative for sinus pain and sore throat. Eyes: Negative. Respiratory: Negative for cough. Cardiovascular: Negative. Gastrointestinal: Negative. Genitourinary: Negative. Musculoskeletal: Negative. All other systems reviewed and are negative. PAST MEDICAL HISTORY Diagnosis Date Eczema Obesity Tobacco abuse Current Outpatient Medications Medication Sig Dispense Refill fluticasone (FLONASE) 50 mcg/actuation nasal spray Use 2 Sprays in each nostril once daily. Rinse mouth after use. 1 Each 0 cetirizine-pseudoephedrine (ZYRTEC-D) 5-120 mg per tablet Take 1 tablet by mouth two times a day. 14 tablet 0 triamcinolone acetonide (KENALOG) 0.1 % cream Apply 1 application to affected area three times daily. Apply sparingly to area for rash/itching. (Patient not taking: Reported on 09/25/2019) 80 g 0 albuterol HFA (PROAIR HFA) 90 mcg/actuation inhaler Inhale 2 Puffs as instructed every 4 hours as needed. (Patient not taking: Reported on 07/01/2019) 1 Inhaler 0 clobetasol 0.05 % cream Apply sparingly to areas twice daily, on 4 days and off 3 days (Patient not taking: Reported on 10/01/2024) 30 g 1 No current facility-administered medications for this visit. No past surgical history on file. FAMILY HISTORY Problem Relation Age of Onset Coronary Artery Disease Mother in her 30's Diabetes Mother Stroke Paternal Grandmother Social History Tobacco Use Smoking status: Former Types: Cigarettes Smokeless tobacco: Never Tobacco comments: 5 cigarettes daily Objective BP 130/84 Pulse 92 Temp 36.7 ?C (98.1 ?F) (Tympanic) Resp 16 Wt (!) 140.9 kg (310 lb 10.1 oz) SpO2 97% Physical Exam Vitals reviewed. Constitutional: Appearance: Normal appearance. HENT: Head: Normocephalic and atraumatic. Right Ear: Tympanic membrane, ear canal and external ear normal. Left Ear: Tympanic membrane, ear canal and external ear normal. Ears: Comments: Scant cerumen in each canal Nose: Congestion present. Mouth/Throat: Mouth: Mucous membranes are moist. Pharynx: Oropharynx is clear. Cardiovascular: Rate and Rhythm: Normal rate and regular rhythm. Heart sounds: Normal heart sounds. Pulmonary: Effort: Pulmonary effort is normal. Breath sounds: Normal breath sounds. Musculoskeletal: Cervical back: Neck supple. Skin: General: Skin is warm and dry. Findings: No rash. Neurological: Mental Status: He is alert. Assessment and Plan ASSESSMENT/PLAN: 1. Otalgia of both ears - ICD9: 388.70, ICD10: H92.03 Likely eustachian tube dysfunction. Flonase and Zyrtec-D sent. Follow-up with PCP if not improving. PRADIP BergC Allergies As of Date: 11/20/2024 Noted Allergy Reaction PINE TREES (TREES) 10/08/2013 2 - Rash Date Reviewed: 11/20/2024 Reviewed by: Corina Lo LPN - Fully Assessed Reason for Visit: Ear Problem [38] Cmt: Ears feel clogged, sinus pressure and ROJO x 2 days Primary Visit Diagnosis:Otalgia of both ears [H92.03] Order(s):fluticasone (FLONASE) 50 mcg/actuation nasal sprayUse 2 Sprays in each nostril once daily. Rinse mouth after use.Disp: 1 EachRfl: 0 cetirizine-pseudoephedrine (ZYRTEC-D) 5-120 mg per tabletTake 1 tablet by mouth two times a day.Disp: 14 tabletRfl: 0 Prescriptions as of 11/20/2024 - fluticasone (FLONASE) 50 mcg/actuation nasal spray Use 2 Sprays in each nostril once daily. Rinse mouth after use. - cetirizine-pseudoephedrine (ZYRTEC-D) 5-120 mg per tablet Take 1 tablet by mouth two times a day. - triamcinolone acetonide (KENALOG) 0.1 % cream Apply 1 application to affected area three times daily. Apply sparingly to area for rash/itching. - albuterol HFA (PROAIR HFA) 90 mcg/actuation inhaler Inhale 2 Puffs as instructed every 4 hours as needed. - clobetasol 0.05 % cream Apply sparingly to areas twice daily, on 4 days and off 3 days Problem List As Of Date 11/20/2024 Noted Resolved Eczema [L30.9] Obesity, Class III, BMI 40-49.9 (morbid obesity* Tobacco abuse [Z72.0] Seborrheic dermatitis [L21.9] 10/26/2013 Prescriptions ordered this encounter Disp Refills Start End FLUTICASONE PROPIONATE 50 MCG/ACTUAT* 1 Ea* 0 11/20/2024 Route: EACH NOSTRIL Sig: Use 2 Sprays in each nostril once daily. Rinse mouth after use. CETIRIZINE 5 MG-PSEUDOEPHEDRINE ER 1* 14 t* 0 11/20/2024 Route: ORAL Sig: Take 1 tablet by mouth two times a day. Encounter Status:Closed by RACHEAL MACIAS on 11/20/24 PROGRESS Observed: 10/01/2024 10:02 AM Status: COMPLETED [id number] Author: RACHEAL MACIAS PA-C Service: ? Author Type: Physician Health Facilities Surveyor Type: Progress Notes Filed: 10/01/2024 10:08 Note Text: This note was created using Standard Treasuryter. Subjective Henko Medley is a 34 year old male. HPI Presents with a chief complaint of a sore throat. He states he noticed this the past few days. It started in the back of his tongue and then went to his throat. Denies runny nose cough, congestion. Denies ear pain. No vomiting or diarrhea. No other ill symptoms. Denies smoking, states he was a former smoker but quit 2 years ago. Denies history of diabetes. No recent steroids. He denies recent antibiotics. Denies use of an inhaler. Review of Systems Constitutional: Negative. HENT: Positive for sore throat. Negative for congestion, ear pain, rhinorrhea, sinus pressure and sinus pain. Respiratory: Negative. Cardiovascular: Negative. Gastrointestinal: Negative. Genitourinary: Negative. Musculoskeletal: Negative. All other systems reviewed and are negative. PAST MEDICAL HISTORY Diagnosis Date Eczema Obesity Tobacco abuse Current Outpatient Medications Medication Sig Dispense Refill nystatin (MYCOSTATIN) 100,000 unit/mL suspension Take 5 mL by mouth four times daily for 14 days. 1tsp swish in mouth for several minutes, then swallow (or expectorate) 4 times daily until gone. 280 mL 0 triamcinolone acetonide (KENALOG) 0.1 % cream Apply 1 application to affected area three times daily. Apply sparingly to area for rash/itching. (Patient not taking: Reported on 09/25/2019) 80 g 0 albuterol HFA (PROAIR HFA) 90 mcg/actuation inhaler Inhale 2 Puffs as instructed every 4 hours as needed. (Patient not taking: Reported on 07/01/2019) 1 Inhaler 0 clobetasol 0.05 % cream Apply sparingly to areas twice daily, on 4 days and off 3 days (Patient not taking: Reported on 10/01/2024) 30 g 1 No current facility-administered medications for this visit. No past surgical history on file. FAMILY HISTORY Problem Relation Age of Onset Coronary Artery Disease Mother in her 30's Diabetes Mother Stroke Paternal Grandmother Social History Tobacco Use Smoking status: Former Types: Cigarettes Smokeless tobacco: Never Tobacco comments: 5 cigarettes daily Objective BP 122/86 Pulse 80 Temp 36.3 ?C (97.3 ?F) Resp 18 Wt (!) 140.3 kg (309 lb 4.9 oz) SpO2 99% Physical Exam Vitals reviewed. Constitutional: Appearance: Normal appearance. HENT: Head: Normocephalic and atraumatic. Right Ear: Tympanic membrane, ear canal and external ear normal. Left Ear: Tympanic membrane, ear canal and external ear normal. Nose: Nose normal. Mouth/Throat: Mouth: Mucous membranes are moist. Comments: Patient has white film with erythema underlying on his posterior pharynx and tongue consistent with thrush. Cardiovascular: Rate and Rhythm: Normal rate and regular rhythm. Heart sounds: Normal heart sounds. Pulmonary: Effort: Pulmonary effort is normal. Breath sounds: Normal breath sounds. Musculoskeletal: Cervical back: Neck supple. Lymphadenopathy: Cervical: No cervical adenopathy. Skin: General: Skin is warm and dry. Neurological: Mental Status: He is alert. Assessment and Plan ASSESSMENT/PLAN: 1. Thrush, oral - ICD9: 112.0, ICD10: B37.0 Will treat with nystatin mouthwash. Discussed red flags to be seen again. I did recommend establishing with PCP as he has not seen one in several years. Patient voiced understanding to plan. Racheal Macias PA-C CNOV Observed: 10/01/2024 9:30 AM Status: COMPLETED Source: [facility] Office Visit (WSTR) HENOK MEDLEY ([id number]) 1990 M Date Time Provider Department 10/01/24 9:30 AM RACHEAL MACIASWSTR During your visit today, we recorded the following information about you: Temperature Pulse Respiration Blood pressure 97.3 degrees 80/minute 18/minute 122/86 Weight 140.3 kg Racheal Macias PA-C 10/01/2024 10:08 AM Signed This note was created using Standard Treasuryter. Subjective Henok Medley is a 34 year old male. HPI Presents with a chief complaint of a sore throat. He states he noticed this the past few days. It started in the back of his tongue and then went to his throat. Denies runny nose cough, congestion. Denies ear pain. No vomiting or diarrhea. No other ill symptoms. Denies smoking, states he was a former smoker but quit 2 years ago. Denies history of diabetes. No recent steroids. He denies recent antibiotics. Denies use of an inhaler. Review of Systems Constitutional: Negative. HENT: Positive for sore throat. Negative for congestion, ear pain, rhinorrhea, sinus pressure and sinus pain. Respiratory: Negative. Cardiovascular: Negative. Gastrointestinal: Negative. Genitourinary: Negative. Musculoskeletal: Negative. All other systems reviewed and are negative. PAST MEDICAL HISTORY Diagnosis Date Eczema Obesity Tobacco abuse Current Outpatient Medications Medication Sig Dispense Refill nystatin (MYCOSTATIN) 100,000 unit/mL suspension Take 5 mL by mouth four times daily for 14 days. 1tsp swish in mouth for several minutes, then swallow (or expectorate) 4 times daily until gone. 280 mL 0 triamcinolone acetonide (KENALOG) 0.1 % cream Apply 1 application to affected area three times daily. Apply sparingly to area for rash/itching. (Patient not taking: Reported on 09/25/2019) 80 g 0 albuterol HFA (PROAIR HFA) 90 mcg/actuation inhaler Inhale 2 Puffs as instructed every 4 hours as needed. (Patient not taking: Reported on 07/01/2019) 1 Inhaler 0 clobetasol 0.05 % cream Apply sparingly to areas twice daily, on 4 days and off 3 days (Patient not taking: Reported on 10/01/2024) 30 g 1 No current facility-administered medications for this visit. No past surgical history on file. FAMILY HISTORY Problem Relation Age of Onset Coronary Artery Disease Mother in her 30's Diabetes Mother Stroke Paternal Grandmother Social History Tobacco Use Smoking status: Former Types: Cigarettes Smokeless tobacco: Never Tobacco comments: 5 cigarettes daily Objective BP 122/86 Pulse 80 Temp 36.3 ?C (97.3 ?F) Resp 18 Wt (!) 140.3 kg (309 lb 4.9 oz) SpO2 99% Physical Exam Vitals reviewed. Constitutional: Appearance: Normal appearance. HENT: Head: Normocephalic and atraumatic. Right Ear: Tympanic membrane, ear canal and external ear normal. Left Ear: Tympanic membrane, ear canal and external ear normal. Nose: Nose normal. Mouth/Throat: Mouth: Mucous membranes are moist. Comments: Patient has white film with erythema underlying on his posterior pharynx and tongue consistent with thrush. Cardiovascular: Rate and Rhythm: Normal rate and regular rhythm. Heart sounds: Normal heart sounds. Pulmonary: Effort: Pulmonary effort is normal. Breath sounds: Normal breath sounds. Musculoskeletal: Cervical back: Neck supple. Lymphadenopathy: Cervical: No cervical adenopathy. Skin: General: Skin is warm and dry. Neurological: Mental Status: He is alert. Assessment and Plan ASSESSMENT/PLAN: 1. Thrush, oral - ICD9: 112.0, ICD10: B37.0 Will treat with nystatin mouthwash. Discussed red flags to be seen again. I did recommend establishing with PCP as he has not seen one in several years. Patient voiced understanding to plan. Racheal Macias PA-C Referring Provider: SELF [200] Allergies As of Date: 10/01/2024 Noted Allergy Reaction PINE TREES (TREES) 10/08/2013 2 - Rash Date Reviewed: 10/01/2024 Reviewed by: Erica Brown MA - Fully Assessed Reason for Visit: Sore Throat [200] Cmt: X2 days Primary Visit Diagnosis:Thrush, oral [B37.0] Order(s):nystatin (MYCOSTATIN) 100,000 unit/mL suspensionTake 5 mL by mouth four times daily for 14 days. 1tsp swish in mouth for several minutes, then swallow (or expectorate) 4 times daily until gone.Disp: 280 mLRfl: 0 STREP A MOLECULAR (POC) [[id number]] Order #: [id number]. #:[id number] Prescriptions as of 10/01/2024 - nystatin (MYCOSTATIN) 100,000 unit/mL suspension Take 5 mL by mouth four times daily for 14 days. 1tsp swish in mouth for several minutes, then swallow (or expectorate) 4 times daily until gone. - triamcinolone acetonide (KENALOG) 0.1 % cream Apply 1 application to affected area three times daily. Apply sparingly to area for rash/itching. - albuterol HFA (PROAIR HFA) 90 mcg/actuation inhaler Inhale 2 Puffs as instructed every 4 hours as needed. - clobetasol 0.05 % cream Apply sparingly to areas twice daily, on 4 days and off 3 days Medication notes this encounter CLOBETASOL 0.05 % TOPICAL CREAM >> Erica Brown MA 10/01/2024 9:42 AM >> ERICA BROWN [facility] Oct 01, 2024 9:42 AM Problem List As Of Date 10/01/2024 Noted Resolved Eczema [L30.9] Obesity, Class III, BMI 40-49.9 (morbid obesity* Tobacco abuse [Z72.0] Seborrheic dermatitis [L21.9] 10/26/2013 Prescriptions ordered this encounter Disp Refills Start End NYSTATIN 100,000 UNIT/ML ORAL SUSPEN* 280 * 0 10/01/2024 10/15/2024 Route: ORAL Sig: Take 5 mL by mouth four times daily for 14 days. 1tsp swish in mouth for several minutes, then swallow (or expectorate) 4 times daily until gone. Encounter Status:Closed by RACHEAL MCAIAS on 10/01/24 ALLERGIES DATE TYPE / CODE NAME / CODE REACTION SEVERITY SOURCE 10/08/2013 Environ/[id number](SN OMED CT) TREES RASH [facility] ENCOUNTERS ADMIT/DISCHARGE ACCOUNT NUMBER ADMITTING ENCOUNTER CLASS LOC ATION SOURCE 11/20/2024/ 4 [id number] Ambulatory [facility] 10/01/2024/ 4 [id number] [facility] PAYERS ENCOUNTER GUARANTOR PAYER SUBSCRIBER SOURCE 11/20/2024 Primary Insurance:PURVI Roberts Number: [id number] Date:[id number] Name:Chacha BALLARDB: [id number] [place] [address] [facility]
[2025-08-23 16:13] VITALS: BP 148/117; PULSE 106; RESP 18; TEMP 36.9; O2SAT 97; BMI 44.6
--- NOTE | 2025-08-23 18:00 | RAD_ITS ---
PROCEDURE: LUMBAR SPINE 2 OR 3 VIEWS 08/23/2025 REASON FOR EXAM: INJURY/PAIN TECHNIQUE: Procedure Code: RADSPLL Modality: DX Procedure: LUMBAR SPINE 2 OR 3 VIEWS COMPARISON: None. FINDINGS: No evidence of fracture or malalignment. Vertebral body heights and disc spaces are well preserved. Alignment is anatomic. Normal bone mineralization. Grossly unremarkable soft tissues. RAD/Lumbar Spine 2 or 3 Views IMPRESSION: No evidence of fracture or malalignment. Reading Location: [id number]
--- NOTE | 2025-08-23 19:21 | ED.VIS.BACK ---
HPI History of Present Illness Chief Complaint: Back Detail of Chief Complaint: Exacerbation of chronic back pain related to an injury 1 year ago Informant: patient Onset/Context/Timing Onset: Days Context: Sudden Onset Chronic pain exacerbated by: Prior injury lifting tires 1 year ago. Injury: lifting, twisting and bending Timing: Continuous Quality: Dull and Aching Location: Lumbar Current Severity: Severe Maximum Severity: Severe Worsened by: improves with Movement, Ambulation and Bending Relieved by: Nothing Associated Symptoms Associated Symptoms: Negative for Numbness, Tingling, Radiation to Right Leg, Radiation to Left Leg, Fever, Abdominal Pain, Dysuria, Unable to Ambulate, Unable to Transfer, Urinary Retention, Urinary Incontinence, Constipation or Fecal Incontinence Narrative Narrative: Patient is a 35-year-old male. He presents with exacerbation of chronic low back pain. Denies radicular pain. Denies foot drop. Denies buckling his knees going up and down steps. He denies bowel bladder dysfunction. No saddle paresthesia or anesthesia. He denies fever, chills night sweats. He denies recent dental procedure. He has no history of IV drug use. He has never had imaging of his back. He has no other complaints. Past medical history of plaque psoriasis. Prior similar symptoms: Yes Recent Illness/Hospitalization: No PFSH PFSH Medical History GERD (gastroesophageal reflux disease) Former smoker Home Medications Medication Instructions Recorded Last Taken Type naproxen 500 mg tablet 500 mg PO BID #14 tabs 08/23/25 Unknown Rx Allergy/AdvReac Type Severity Reaction Status Date / Time Environmental Allergies: Allergy Rash Verified 08/23/25 16:13 Uncoded (pine) Family History Other Diabetes Surgical History H/O removal of cyst Social History household members: family Smoking Status: Former smoker ROS ROS ED Constitutional Constitutional ED: Denies chills, fever(s), subjective or sweats Cardiovascular Cardiovascular: Denies chest pain, orthopnea, palpitations or paroxysmal nocturnal dyspnea Respiratory/Chest Respiratory/Chest: Denies dyspnea, dyspnea on exertion, orthopnea or paroxysmal nocturnal dyspnea Gastrointestinal Gastrointestinal: Denies abdominal pain, constipation, diarrhea, nausea or vomiting Genitourinary Genitourinary ED: Denies dysuria, hematuria or urinary frequency Musculoskeletal Musculoskeletal: Reports back pain; Denies arthralgias or myalgias Integumentary Denies rash Neurologic Neurologic: Denies paresthesias or weakness Hematologic/Lymphatic Hematologic/Lymphatic: Denies easy bleeding or easy bruising EXAM Physical Exam Const Vital Signs: 08/23/25 16:13 Temperature 98.4 F Temperature Source Oral Pulse Rate 106 H Respiratory Rate 18 Blood Pressure 148/117 H Blood Pressure Mean 127 Pulse Ox 97 Oxygen Delivery Method Room Air Positive well nourished and well developed Constitutional Narrative: Blood pressure is elevated. He appears uncomfortable. He has grimacing when he moves. BMI is 44.6. General Appearance ED: well developed HEENT HEENT Narrative: Head is atraumatic normocephalic. Ears normal. Nares patent. Posterior proximal normal. Uvula midline. No deviation protrusion Eyes PERRL and EOMs intact bilaterally General Eye ED: Negative for pale conjunctiva or scleral icterus Neck no lymphadenopathy and no JVD Resp normal respiratory effort and clear to auscultation bilaterally Cardio regular rate, regular rhythm, S1 normal heart sound, S2 normal heart sound and no murmurs GI normal to inspection, nondistended, normoactive bowel sounds, soft to palpation, non-tender, non-distended and no masses Back/Spine normal to inspection; Negative for no thoracic nor lumbar tenderness Back/Spine Narrative: There is bilateral paralumbar tenderness. Straight leg test is negative bilaterally. Patella and ankle reflex are 1-2+ and symmetric. EHLs intact. Normal sensation L3-S1 dermatome. Gait observed with no foot drop. Able to walk on heels and toes. Able to perform 1 legged squat right and left. DP and PT pulse are palpable. Extremity normal to inspection and no clubbing, cyanosis or edema General Extremety ED: Negative for edema or tenderness General Extremity: Negative for edema Neuro oriented x3 and no sensory deficits noted Sensorium / Orientation: alert Motor Exam: strength 5/5 throughout Deep Tendon Reflexes: Rt Patellar (L4): 2+, Lt Patellar (L4): 2+, Rt Ankle (S1): 2+ and Lt Ankle (S1): 2+ Deep Tendon Reflexes Back: Rt Patellar (L4): 2+, Lt Patellar (L4): 2+, Rt Ankle (S1): 2+ and Lt Ankle (S1): 2+ Plantar Reflex: Downgoing: bilateral Psych mental status grossly normal Skin no rashes or lesions noted and no wounds MDM MDM MDM Narrative Medical decision making narrative: Patient drove himself. He was given IV ketorolac and since imaging is never been done of his back imaging was obtained to see if there is any evidence of prior compression fracture. Spondylolisthesis, spondylosis, degenerative changes. He was medicated with IV ketorolac. Radiography Chest X-Ray - ED: 2 View and Read by ED Physician (X-ray is normal. There is no significant or any degenerative changes. Disc bases are symmetric. There is no evidence of compression fracture or prior fracture. There is no lytic or blastic lesions noted.) Diagnostic Testing: Clinical Impression(s) from Imaging Studies Lumbar Spine X-Ray 08/23/25 18:00 IMPRESSION: No evidence of fracture or malalignment. Reading Location: [facility] Treatment and Re-Evaluation Narrative: 1 patient was reassessed at approximately 1923 his pain had decreased by 50%. Plan is to discharge to home with NSAID since he has no contraindication. Discharge Plan Triage Chief Complaint: Back ED Provider: Angelo Wharton Dx/Rx/DC Orders Clinical Impression: Acute bilateral low back pain without sciatica, Elevated blood-pressure reading without diagnosis of hypertension, Adult BMI 40.0-44.9 kg/sq m Instructions: ED Back Pain (Acute or Chronic), ED Hypertension, To Be Confirmed Prescriptions: New naproxen 500 mg tablet 500 mg PO BID Qty: 14 0RF Primary Care Provider: Care Physician,No Primary Referrals: Care Physician,No Primary [Primary Care Provider, Medical] Activity Restrictions/Additional Instructions: 1. Recommend ice to your lower back 6 times a day. 2. Take medication as prescribed. 3. Recommend follow-up with the provider listed on your insurance card for blood pressure check in 1 to 2 weeks. Your blood pressure is elevated especially for someone your age Print Language: Albanian Disposition Disposition: Home, Self Care
[2025-08-23 19:30] VITALS: BP 148/117; PULSE 106; RESP 18; TEMP 36.9; O2SAT 97
== END 2025-08-23 19:33 | disposition home or self-care (01) ==
PROVIDERS: Emergency Provider Emergency Medicine; Visit Provider Emergency Medicine
DX: M54.50 Low back pain, unspecified (principal); Z87.891 Personal history of nicotine dependence; G89.29 Other chronic pain; R03.0 Elevated blood-pressure reading, without diagnosis of hypertension
CPT/HCPCS: 72100; 96374; 99283; A4216